=== PATIENT | male | born 1940 | race Caucasian/White ===

== ENCOUNTER 2017-03-01 09:20 | Emergency (ER) | payer MEDICARE, OTHER ==
[~2017-03-01] VITALS: Ht 170.2 cm; Wt 72.7 kg
[~2017-03-01 09:20] MED LIST: AMLO5TAB2 PO; ASPI-973 PO; ATOR40TA69 PO; OMEG-38 PO
[2017-03-01 09:25] VITALS: BP 147/70; PULSE 60; RESP 16; O2SAT 98
--- NOTE | 2017-03-01 10:16 | ED.REPORT ---
HPI-Extremity Problem Upper Date of Service Mar 01, 2017 ED Provider: Dylan Valle MD Patient is a 76 year old male with a hx of PE, HTN, [place] with stents, and TIA who presents to the ED complaining of swelling in his L forearm onset this morning. He denies pain, SOB, cough, or any other symptoms. He does not recall a mechanism of injury. He takes Brilinta (90mg), Xarelto, aspirin, and Metoprolol. Nursing Notes Stated Complaint: LEFT ARM SWOLLEN Chief Complaint: General Complaint Nursing Notes Reviewed: Yes Allergies: Coded Allergies: promethazine (Verified Allergy, Mild, somulance, 09/18/15) Scheduled Amlodipine (Amlodipine) 5 Mg Tablet 5 MG PO DAILY Aspirin (Aspirin) 81 Mg Tablet 81 MG PO DAILY Atorvastatin Calcium (Atorvastatin Calcium) 40 Mg Tablet 40 MG PO HS [place]-3/Dha/Epa/Fish Oil (Fish Oil 1,000 mg Softgel) 1 Each Capsule 1 EACH PO DAILY General Time Seen by MD: 09:33 Chief Complaint Arm injury left Hx Obtained From: Patient Arrived By: Walk-in Onset Occurred: Just prior to arrival Past Medical History Past Medical History Notes: PCP: David Menjivar prostate Ca s/p TURP Past Medical History takin a statin in the past, stopped due to lifestyle changes He reports history of exposure to while in the PE [place] with stents Pneumonia Short term memory loss Reports: Hyperlipidemia, Hypertension, Transient ischemic attack (x3) Past Surgical History TERP hemroidectomy Cardiac stents Smoking History Former Smoker Social History Pt states he moves around, former residence in [place], [place], and currently locally in a motel. Alcohol Use: Denies alcohol use Ambulatory Status Independent Review of Systems Musculoskeletal: Reports: Extremity swelling, Denies: Extremity pain Complete sys rev & neg: except as marked. Respiratory: Denies: Non-productive cough, Shortness of breath Physical Exam Initial Vital Signs Vital Signs (First) Date Time Temp Pulse Resp B/P Pulse Ox O2 Delivery O2 Flow Rate FiO2 03/01/17 09:25 36.5 60 16 147/70 98 Room Air Initial VS: Reviewed Head / Eyes: Atraumatic, Normocephalic Neck: Full range of motion Respiratory: Breath sounds normal, Clear to auscultation, No respiratory distress Cardiovascular: Regular rate & rhythm, Heart sounds normal, Intact distal pulses Abdomen / GI: Soft, Non-tender Skin: Warm, Dry Neurologic: Alert, Oriented, Nonfocal Psychiatric: Mood/affect normal, Behavior normal, Normal thought content General/Constitutional: Awake, Alert, No acute distress, Well developed Upper Extremity / MS: Non-tender, No erythema, Neurologic intact, Vascular intact [id number] subcutaneous hematoma on L proximal forearm No warmth Interpretation & Diagnostics Lab Results Interpretation Test 03/01/17 10:35 Hold Urine Received (Received) Re-Eval/Medical Decision Med Decision/Clinical Course Patient is a 76 year old male with a hx of PE, HTN, [place] with stents, and TIA who presents to the ED complaining of swelling in his L forearm onset this morning. He denies pain, SOB, cough, or any other symptoms. He does not recall a mechanism of injury. He takes Brilinta (90mg), Xarelto, aspirin, and Metoprolol. Examination reveals an obvious subcutaneous hematoma. It is relatively small. There is no evidence of abscess or cellulitis. He is neurovascularly intact in the distal aspect of the extremity. Per history this hematoma is not expanding or getting bigger. I have applied a light compression dressing and advised to remove that should he develop any signs of vascular compromise. Patient is overall well- appearing and I feel it is appropriate for discharge. Prior to discharge follow- up and return precautions were reviewed in detail with the patient who verbalized understanding and agreement with the plan. The patient was discharged in stable condition. Re-Evaluation/Progress : Time of Eval: 10:33 Re-Evaluation/Progress Note: Discussed plan for discharge. Patient understands and agrees with plan. All questions addressed at this time. Counseled Regarding: Diagnosis, Need for follow-up, When/why to return to ED Discharge & Departure Impression: Primary Impression: Hematoma Additional Impression: Forearm pain Laterality: left Qualified Code: M79.632 - Pain in left forearm Disposition: Home Discharge Condition All VS Reviewed: Yes Condition: Stable Additional Instructions: Thank you for seeking care at the emergency room. It is difficult for us to make definitive diagnoses in the ED but we believe that you are experiencing a hematoma on your forearm. Our primary goal today in the ED was to evaluate you for any life-threatening conditions. Your evaluation was reassuring. Please apply compression bandage but not so tight you cut off circulation tear fingertips. If you have any discoloration of your fingertips or tingling/ numbness you should loosen the bandage. You should follow-up with your primary doctor in the next week. You should return to the ED immediately if you develop any new/worsening symptoms, fevers, vomiting, cough, shortness of breath, chest pain, lightheadedness, weakness or any other concerning signs or symptoms. Thank you for letting us partake in your care today. Referrals: NOPCP (PCP) Scribe Attestation Portions of this note were transcribed by Sandro Alegria. I, Dr. Valle personally performed the history, physical exam and medical decision-making; I reviewed and confirmed the accuracy of the information in the transcribed note. Signed by: Sandro Alegria 03/01/17, 1044 Dylan Valle MD Mar 01, 2017 10:16 SANDRO ALEGRIA Mar 01, 2017 10:24
[2017-03-01 10:43] VITALS: BP 128/69; PULSE 55; RESP 16; O2SAT 99
== END 2017-03-01 10:45 | disposition home or self-care (01) ==
LOC: SED 09:20
DX: S50.12XA Contusion of left forearm, initial encounter (principal); X58.XXXA Exposure to other specified factors, initial encounter; Y93.89 Activity, other specified; Y92.89 Other specified places as the place of occurrence of the external cause; Y99.8 Other external cause status; I11.9 Hypertensive heart disease without heart failure; I25.2 Old myocardial infarction; E87.5 Hyperkalemia; Z95.5 Presence of coronary angioplasty implant and graft; Z86.73 Personal history of transient ischemic attack (TIA), and cerebral infarction without residual deficits; Z87.891 Personal history of nicotine dependence; Z79.82 Long term (current) use of aspirin; Z88.1 Allergy status to other antibiotic agents